=== PATIENT | female | born 1975 | race Caucasian/White ===

== ENCOUNTER 2024-11-06 11:55 | Emergency (ER) | payer OTHER ==
[2024-11-06] MEDS: Cephalexin 500 MG Cap PO ONE (15:19)
== END 2024-11-06 16:41 | disposition home or self-care (01) ==
LOC: JD.ED 11:55
DX: L03.115 Cellulitis of right lower limb (principal); E66.9 Obesity, unspecified; Z68.38 Body mass index [BMI] 38.0-38.9, adult
CPT/HCPCS: 93971; 99283; A9270